=== PATIENT | female | born 1945 | race Caucasian/White ===

== ENCOUNTER 2020-10-03 06:18 | Inpatient (IN) ==
[2020-09-28 08:48] LABS: Calcium 10.2 MG/DL (8.5-10.1); Osmolality,Calculated 288.5 MOS/KG (273-304); Potassium 5.3 MMOL/L (3.5-5.1)
[2020-09-28 08:52] LABS: Basophils % 0.6 % (0.0-0.8); Eosinophils # 0.1 10*3/uL (0.0-0.87); Hematocrit 49.1 VOL% (35.7-47.0); Hemoglobin 15.1 GM/DL (12.0-16.0); Immature Granulocytes % 0.3 %; Immature Granulocytes Absolute 0.02 #; Lymphocytes # 1.8 10*3/uL (1.4-4.0); Lymphocytes % 25.7 % (21.3-54.2); Mean Corpuscular HGB Conc 30.8 GM/DL (32-36); Mean Platelet Volume 10.5 FL (9.6-12.0); NRBC # 0.03 10*3/uL; Neutrophils % 64.4 % (38.7-73.9); Platelet Count 178 T/CUMM (130-400); Red Blood Count 4.96 MC/CUMM (3.8-5.5); Red Cell Distribution Width 13.4 % (9.3-17.3); White Blood Count 6.9 T/CUMM (4-12)
[2020-10-03] MEDS ORDERED: BUPIVACAINE MPF 0.25% 30 ML VIAL ONE ×2 (06:36→06:46)
[2020-10-03] MEDS ORDERED: LIDOCAINE 1%/EPI INJ 20 ML VIAL ONE (06:37)
[2020-10-03] MEDS ORDERED: DIAZEPAM 5 MG TABLET PO ONE (06:39)
[2020-10-03] MEDS ORDERED: LIDOCAINE 2% 5 ML VIAL ONE (06:39)
[2020-10-03] MEDS ORDERED: ACETAMINOPHEN 500 MG TABLET PO ONE (06:39)
[2020-10-03] MEDS ORDERED: MIDAZOLAM 2 MG/2 ML VIAL ONE (06:39)
[2020-10-03] MEDS ORDERED: ROCURONIUM 50 MG/5 ML VIAL IV ONE (06:39)
[2020-10-03] MEDS ORDERED: fentaNYL 100 MCG/2 ML VIAL ONE (06:39)
[2020-10-03] MEDS ORDERED: propofoL 200 MG/20 ML VIAL IV ONE (06:39)
[2020-10-03] MEDS ORDERED: DEXAMETHASONE 4 MG/1 ML VIAL ONE (06:46)
[2020-10-03] MEDS ORDERED: LIDOCAINE 1% 5 ML VIAL ONE (06:47)
[2020-10-03] MEDS: PREGABALIN 100 MG CAPSULE PO SCH ×4 (07:06→16:56)
[2020-10-03] MEDS ORDERED: SEVOFLURANE 1 UNIT/15 MINUTE INH ONE ×6 (08:42→10:22)
[2020-10-03] MEDS ORDERED: ePHEDrine 50 MG/ML VIAL ONE (09:00)
[2020-10-03] MEDS ORDERED: ONDANSETRON 4 MG/2 ML VIAL ONE (09:48)
[2020-10-03] MEDS ORDERED: ALBUTEROL INHALER 18 GM INH ONE (10:02)
[2020-10-03] MEDS ORDERED: NEOSTIGMINE 10 MG/10 ML VIAL ONE (10:12)
[2020-10-03] MEDS ORDERED: GLYCOPYRROLATE 0.4 MG/2 ML VIAL ONE (10:12)
[2020-10-03] MEDS ORDERED: LACTATED RINGERS 1,000 ML IV ONE (10:22)
[2020-10-03] MEDS ORDERED: ACETAMINOPHEN 325 MG TABLET PO PRN (10:39)
[2020-10-03] MEDS ORDERED: ONDANSETRON 4 MG/2 ML VIAL IV PRN ×2 (10:39→10:55)
[2020-10-03] MEDS ORDERED: NALOXONE 0.4 MG/ML VIAL IV PRN (10:39)
[2020-10-03] MEDS ORDERED: HYDROmorphone 2 MG/1 ML VIAL ONE (10:53)
[2020-10-03] MEDS: HYDROmorphone 2 MG/1 ML VIAL IV PRN ×4 (10:55→11:15)
[2020-10-03 11:04] LABS: Bilirubin,Urine Negative (Negative); Blood, Urine Negative (Negative); Glucose,Urine (UA) Negative (Negative); Ketones,Urine Negative (Negative); Nitrite,Urine Negative (Negative); Protein,Urine Negative; RBC,Urine <1 /HPF (0-4); Urine Appearance CLEAR (Clear); Urine Color Straw (Yellow); Urine Specific Gravity 1.004 (1.001-1.035); Urine Urobilinogen < 2.0 EU/DL (0.2-1.0)
[2020-10-03] MEDS: HYDROmorphone PCA 30 MG/30 ML SYRINGE IV SCH (11:25)
[2020-10-03] MEDS ORDERED: MEPERIDINE 25 MG/1 ML VIAL ONE (11:32)
[2020-10-03] MEDS ORDERED: MEPERIDINE 25 MG/1 ML VIAL IV ONE (11:35)
[2020-10-03] MEDS: DEXTROSE 5% LACTATED RINGERS 1,000 ML IV SCH ×2 (12:24→21:35)
[2020-10-03] MEDS ORDERED: ALBUTEROL 2.5 MG/3 ML NEB RESP TX PRN (15:17)
[2020-10-03] MEDS ORDERED: TRIMETHOPRIM 100 MG TABLET PO SCH (21:00)
[2020-10-03] MEDS: CALCIUM (CARBONATE) 600 MG TABLET PO SCH (21:31)
[2020-10-03] MEDS: amLODIPine 5 MG TABLET PO SCH (21:33)
[2020-10-03] MEDS: MONTELUKAST 10 MG TABLET PO SCH (21:35)
[2020-10-03] MEDS: ACETAMINOPHEN 500 MG TABLET PO SCH (21:35)
[2020-10-03] MEDS: POLYETHYLENE GLYCOL POWDER 17 GM PACK PO SCH (21:36)
[2020-10-03] MEDS: ceFAZolin 2,000 MG in PREMIX 1 EACH IV SCH (21:40)
[2020-10-04] MEDS: BUDESONIDE 0.25 MG/2 ML NEB RESP TX SCH ×2 (00:50→20:15)
[2020-10-04] MEDS: DEXTROSE 5% LACTATED RINGERS 1,000 ML IV SCH ×3 (04:07→21:11)
[2020-10-04] MEDS: ceFAZolin 2,000 MG in PREMIX 1 EACH IV SCH (04:27)
[2020-10-04] MEDS: PREGABALIN 100 MG CAPSULE PO SCH ×2 (04:28→16:41)
[2020-10-04] MEDS ORDERED: ENOXAPARIN 40 MG/0.4 ML SYRINGE ONE (04:33)
[2020-10-04] MEDS: ENOXAPARIN 40 MG/0.4 ML SYRINGE SUBCUT SCH ×2 (04:41→05:11)
[2020-10-04 05:13] LABS: Basophils % 0.1 % (0.0-0.8); Eosinophils % 0.1 % (0.00-10.9); Hematocrit 38.5 VOL% (35.7-47.0); Hemoglobin 12.9 GM/DL (12.0-16.0); Immature Granulocytes % 0.4 %; Immature Granulocytes Absolute 0.03 #; Lymphocytes # 1.2 10*3/uL (1.4-4.0); Lymphocytes % 14.2 % (21.3-54.2); Mean Corpuscular HGB Conc 33.5 GM/DL (32-36); Mean Corpuscular Volume 92.5 FL (87-102); Mean Platelet Volume 9.7 FL (9.6-12.0); Monocytes % 8.6 % (1.7-12.7); NRBC # 0.02 10*3/uL; Neutrophils % 76.6 % (38.7-73.9); Platelet Count 167 T/CUMM (130-400); Red Blood Count 4.16 MC/CUMM (3.8-5.5); Red Cell Distribution Width 12.8 % (9.3-17.3); White Blood Count 8.2 T/CUMM (4-12)
[2020-10-04 05:32] LABS: Calcium 8.4 MG/DL (8.5-10.1); Osmolality,Calculated 282.7 MOS/KG (273-304); Potassium 4.1 MMOL/L (3.5-5.1)
[2020-10-04] MEDS: MAGNESIUM GLUCONATE 500 MG TABLET PO SCH (08:59)
[2020-10-04] MEDS: CALCIUM (CARBONATE) 600 MG TABLET PO SCH ×2 (08:59→21:12)
[2020-10-04] MEDS: PANTOPRAZOLE 40 MG TABLET PO SCH (08:59)
[2020-10-04] MEDS: amLODIPine 5 MG TABLET PO SCH ×2 (08:59→21:12)
[2020-10-04] MEDS: FENOFIBRATE 160 MG TABLET PO SCH (08:59)
[2020-10-04] MEDS: ACETAMINOPHEN 500 MG TABLET PO SCH ×2 (08:59→21:12)
[2020-10-04] MEDS: LEVOTHYROXINE 100 MCG TABLET PO SCH (08:59)
[2020-10-04] MEDS: POLYETHYLENE GLYCOL POWDER 17 GM PACK PO SCH ×2 (09:00→21:11)
[2020-10-04] MEDS: HYDROmorphone PCA 30 MG/30 ML SYRINGE IV SCH (12:29)
[2020-10-04] MEDS: MELATONIN 3 MG TABLET PO PRN (21:12)
[2020-10-04] MEDS: MONTELUKAST 10 MG TABLET PO SCH (21:12)
[2020-10-05] MEDS: PREGABALIN 100 MG CAPSULE PO SCH ×2 (05:29→17:12)
[2020-10-05] MEDS: ENOXAPARIN 40 MG/0.4 ML SYRINGE SUBCUT SCH (05:29)
[2020-10-05] MEDS: DEXTROSE 5% LACTATED RINGERS 1,000 ML IV SCH ×2 (05:29→13:39)
[2020-10-05] MEDS: CALCIUM (CARBONATE) 600 MG TABLET PO SCH ×2 (10:27→20:24)
[2020-10-05] MEDS: ACETAMINOPHEN 500 MG TABLET PO SCH ×2 (10:27→20:23)
[2020-10-05] MEDS: POLYETHYLENE GLYCOL POWDER 17 GM PACK PO SCH ×3 (10:27→20:23)
[2020-10-05] MEDS: amLODIPine 5 MG TABLET PO SCH ×2 (10:27→20:24)
[2020-10-05] MEDS: MAGNESIUM GLUCONATE 500 MG TABLET PO SCH (10:28)
[2020-10-05] MEDS: FENOFIBRATE 160 MG TABLET PO SCH (10:28)
[2020-10-05] MEDS: PANTOPRAZOLE 40 MG TABLET PO SCH (10:28)
[2020-10-05] MEDS: LEVOTHYROXINE 100 MCG TABLET PO SCH (10:28)
[2020-10-05] MEDS: HYDROmorphone PCA 30 MG/30 ML SYRINGE IV SCH (11:23)
[2020-10-05] MEDS ORDERED: DEXTROSE 50% 25 GM/50 ML VIAL IV PRN (15:07)
[2020-10-05] MEDS ORDERED: GLUCAGON 1 MG VIAL IM PRN (15:07)
[2020-10-05] MEDS: HYDROmorphone 2 MG/1 ML VIAL IV PRN ×2 (15:54→17:49)
[2020-10-05] MEDS: INSULIN LISPRO 100 UNIT/ML SUBCUT SCH ×2 (17:13→20:26)
[2020-10-05] MEDS: BUDESONIDE 0.25 MG/2 ML NEB RESP TX SCH (19:50)
[2020-10-05] MEDS: MELATONIN 3 MG TABLET PO PRN (20:24)
[2020-10-05] MEDS: MONTELUKAST 10 MG TABLET PO SCH (20:24)
[2020-10-06] MEDS: PREGABALIN 100 MG CAPSULE PO SCH (05:32)
[2020-10-06] MEDS: ENOXAPARIN 40 MG/0.4 ML SYRINGE SUBCUT SCH (05:32)
[2020-10-06 08:19] VITALS: BP 145/71
[2020-10-06] MEDS: INSULIN LISPRO 100 UNIT/ML SUBCUT SCH (09:12)
[2020-10-06] MEDS: POLYETHYLENE GLYCOL POWDER 17 GM PACK PO SCH (09:13)
[2020-10-06] MEDS: amLODIPine 5 MG TABLET PO SCH (09:15)
[2020-10-06] MEDS: PANTOPRAZOLE 40 MG TABLET PO SCH (09:15)
[2020-10-06] MEDS: FENOFIBRATE 160 MG TABLET PO SCH (09:16)
[2020-10-06] MEDS: MAGNESIUM GLUCONATE 500 MG TABLET PO SCH (09:16)
[2020-10-06] MEDS: CALCIUM (CARBONATE) 600 MG TABLET PO SCH (09:16)
[2020-10-06] MEDS: ACETAMINOPHEN 500 MG TABLET PO SCH (09:16)
[2020-10-06] MEDS: LEVOTHYROXINE 100 MCG TABLET PO SCH (09:16)
== END 2020-10-06 12:50 | disposition home or self-care (01) | DRG 355 ==
LOC: N.OR 06:18 → N.SDSINP 06:19 → N.5E 12:09
PROVIDERS: ADMIT Student in an Organized Health Care Education/Training Program; ATTEND Student in an Organized Health Care Education/Training Program